=== PATIENT | male | born 1980 | race Caucasian/White ===

== ENCOUNTER 2023-01-25 21:18 | Emergency (ER) | payer MEDICAID ==
[~2023-01-25] VITALS: Ht 182.9 cm; Wt 104.3 kg
[2023-01-25 22:19] VITALS: BP 142/76
--- NOTE | 2023-01-25 23:15 | NUR ---
SEEN AND EXAMINED BY NORY
[2023-01-25] MEDS ORDERED: ACET-8905 PO (23:51)
[2023-01-25] MEDS ORDERED: SULF-59 PO (23:51)
[2023-01-25] MEDS ORDERED: IBUP-2213 PO (23:51)
[2023-01-25] MEDS ORDERED: CEPH-588 PO (23:51)
[2023-01-26 01:20] VITALS: BP 129/79
--- NOTE | 2023-01-26 01:20 | NUR ---
Patient discharged with v/s stable. Written and verbal after care instructions given and explained. Patient alert, oriented and verbalized understanding of instructions. Ambulatory with steady gait. All questions addressed prior to discharge. ID band removed. Patient advised to follow up with PMD. Rx of NORCO, KEFLEX, IBUPROFEN given. Patient educated on indication of medication including possible reaction and side effects. Opportunity to ask questions provided and answered.
== END 2023-01-26 01:20 | disposition home or self-care (01) ==
LOC: MED 21:18
DX: L03.116 Cellulitis of left lower limb (principal); Z79.899 Other long term (current) drug therapy
CPT/HCPCS: 93971; 99284

== ENCOUNTER 2023-08-04 18:45 | Emergency (ER) | payer MEDICAID ==
[~2023-08-04] VITALS: Ht 182.9 cm; Wt 108.9 kg
[~2023-08-04 18:45] MED LIST: ACET-8905 PO; CEPH-588 PO; IBUP-2213 PO; SULF-59 PO
[2023-08-04 19:01] VITALS: BP 148/106; PULSE 94; RESP 16; TEMP 98.7; O2SAT 96
[2023-08-04] MEDS ORDERED: KETOROLAC 30 MG/ML VIAL IM ONE (19:30)
[2023-08-04 20:55] VITALS: BP 144/85; PULSE 91; RESP 17; TEMP 98.2; O2SAT 97
[2023-08-04] MEDS ORDERED: ACET-10509 PO (21:21)
[2023-08-04] MEDS ORDERED: METH-1681 PO (21:21)
== END 2023-08-04 21:26 | disposition home or self-care (01) ==
LOC: MED 18:45
DX: S62.522A Displaced fracture of distal phalanx of left thumb, initial encounter for closed fracture (principal); S20.212A Contusion of left front wall of thorax, initial encounter; Z79.899 Other long term (current) drug therapy; V49.88XA Car occupant (driver) (passenger) injured in other specified transport accidents, initial encounter; Y93.89 Activity, other specified; Y92.89 Other specified places as the place of occurrence of the external cause; Y99.8 Other external cause status
CPT/HCPCS: 29130; 71045; 73140; 73610; 93971; 96372; 99285; J1885; Q0092